=== PATIENT | male | born 1975 | race Caucasian/White ===

== ENCOUNTER 2023-09-09 10:28 | Outpatient (CLI) | payer OTHER, SELFPAY ==
--- NOTE | 2023-09-09 12:13 | W.ANESCHARGE ---
Anesthesia Charges Start Date/Time Anesthesia Start Date: 09/09/23 Anesthesia Start Time: 11:35 Stop Date/Time Anesthesia Stop Date: 09/09/23 Anesthesia Stop Time: 12:15
--- NOTE | 2023-09-09 12:39 | W.ANESCHARGE ---
Anesthesia Charges Start Date/Time Anesthesia Start Date: 09/09/23 Anesthesia Start Time: 11:35 Stop Date/Time Anesthesia Stop Date: 09/09/23 Anesthesia Stop Time: 12:15
== END 2023-09-09 10:29 | disposition home or self-care (01) ==
LOC: OP CLINIC 10:29
PROVIDERS: PCP Emergency Medicine; Visit Provider Surgery
DX: Z12.11 Encounter for screening for malignant neoplasm of colon (principal)
CPT/HCPCS: 00811; 00812; 45378; J2704